=== PATIENT | male | born 1980 | race Caucasian/White ===

== ENCOUNTER 2020-11-08 08:52 | Emergency (ER) | payer BC, OTHER ==
[~2020-11-08] VITALS: Ht 187 cm; Wt 77.0 kg
[2020-11-08] MEDS ORDERED: DEXAMETHASONE (09:17)
[2020-11-08] MEDS ORDERED: DOXY100T2 (09:17)
[2020-11-08] MEDS ORDERED: ALBUTEROL (09:17)
[2020-11-08] MEDS ORDERED: LACTATED RINGERS 1,000 ML IV STA (09:24)
--- NOTE | 2020-11-08 09:29 | ED General ---
General Chief Complaint: Cough/Cold/Flu Symptoms Stated Complaint: FAIRCHILD,CP,COUGH Nursing Triage Note: STATES HE HAS BEEN SICK X1.5 WEEKS AND WAS SEEN AT THE CLINIC LAST WEEK. COVID, FLU, AND PNEUMONIA NEG. CONTINUES TO COMPLAIN OF HEADACHE, MALAISE, CHEST PRESSURE. Nursing Sepsis Screen: No Definite Risk Source of Information: Patient Exam Limitations: No Limitations History of Present Illness Date Seen by Provider: Nov 08, 2020 Time Seen by Provider: 09:10 Initial Comments Patient presents ER by private conveyance with 1 week general malaise, substernal chest pain worse on deep inspiration or palpation and discomfort that is worsened by exertion. No history of heart disease. No known medical history. He does not follow with a primary care doctor and does not take any medicines routinely. He went to urgent care for the past week and has been tested negative for Covid, influenza and walking pneumonia. He has had walking pneumonia before. He has a cough but no fever. He has had negative chest x- rays. They put him on doxycycline and Decadron which she has been taking for the past several days with no relief of symptoms. He does have some difficulty with swallowing and feels like he has an esophageal stricture. He has a son who has the same problem and had to have it dilated. He has never had EGD. Occasionally when something gets stuck in his throat he will feel nauseated but he is not feeling nauseated now. He has been on a liquid diet for the past couple days to avoid the pain of swallowing. Allergies and Home Medications Allergies Coded Allergies: No Known Drug Allergies (Unverified , 11/08/20) Home Medications Pantoprazole Sodium 40 Mg Tablet.dr, 40 MG PO DAILY Prescribed by: CUAUHTEMOC PIERCE on 11/08/20 112 Sucralfate 1 Gm Tablet, 1 GM PO QIDACHS Prescribed by: CUAUHTEMOC PIERCE on 11/08/20 1128 Patient Home Medication List Home Medication List Reviewed: Yes Review of Systems Review of Systems Constitutional: No chills, No diaphoresis, No fever; malaise EENTM: No ear discharge, No ear pain Respiratory: cough; No phlegm; short of breath; No wheezing Cardiovascular: see HPI, chest pain; No edema, No Hx of Intervention, No palpitations, No syncope, No vascular heart diseas Gastrointestinal: see HPI; No abdominal pain, No constipation, No diarrhea, No loss of appetite; other (Dysphagia) Genitourinary: No discharge, No dysuria Musculoskeletal: No back pain, No joint pain All Other Systems Reviewed Negative Unless Noted: Yes Past Dqequtu-Mqukmw-Wssxvz Hx Patient Social History Alcohol Use: Rarely Uses Smoking Status: Never a Smoker Recent Infectious Disease Expo: No Recent Hopitalizations: No Past Medical History Surgeries: Yes Orthopedic Respiratory: No Cardiac: No Neurological: No Genitourinary: No Gastrointestinal: No Musculoskeletal: No Endocrine: No HEENT: No Cancer: No Psychosocial: No Integumentary: No Physical Exam Vital Signs Vital Signs - First Documented 11/08/20 09:00 Temp 37.0 Pulse 82 Resp 16 B/P (MAP) 144/100 (115) Pulse Ox 97 O2 Delivery Room Air Capillary Refill : Less Than 3 Seconds Height, Weight, BMI Height: '" Weight: lbs. oz. kg; 22.00 BMI Method: General Appearance: Anxious, Mild Distress Eyes: Bilateral Eye Normal Inspection, Bilateral Eye PERRL, Bilateral Eye EOMI HEENT: PERRL/EOMI, Pharynx Normal, Moist Mucous Membranes Neck: Full Range of Motion, Normal Inspection Respiratory: No Chest Non Tender (Chest pain reproducible to direct palpation of the sternum); Lungs Clear, Normal Breath Sounds, No Accessory Muscle Use, No Respiratory Distress Cardiovascular: Regular Rate, Rhythm, Normal Peripheral Pulses Gastrointestinal: Normal Bowel Sounds, No Organomegaly, Non Tender, Soft Extremity: Normal Capillary Refill, Normal Inspection, No Pedal Edema Neurologic/Psychiatric: Alert, Oriented x3 Skin: Normal Color, Warm/Dry Progress/Results/Core Measures Suspected Sepsis Recent Fever Within 48 Hours: No Infection Criteria Present: Suspected New Infection New/Unexplained Altered Menta: No Sepsis Screen: No Definite Risk SIRS Temperature: Pulse: 82 Respiratory Rate: 16 Laboratory Tests 11/08/20 09:07: White Blood Count 19.7H Blood Pressure 144 /100 Mean: 115 Laboratory Tests 11/08/20 09:07: Creatinine 0.82, INR Comment 0.9, Platelet Count 235, Total Bilirubin 0.3 Results/Orders Lab Results Laboratory Tests Test 11/08/20 09:07 Range/Units White Blood Count 19.7 H 4.3-11.0 10^3/uL Red Blood Count 5.16 4.30-5.52 10^6/uL Hemoglobin 16.2 13.3-17.7 g/dL Hematocrit 47 40-54 % Mean Corpuscular Volume 91 80-99 fL Mean Corpuscular Hemoglobin 31 25-34 pg Mean Corpuscular Hemoglobin Concent 34 32-36 g/dL Red Cell Distribution Width 12.6 10.0-14.5 % Platelet Count 235 130-400 10^3/uL Mean Platelet Volume 9.6 9.0-12.2 fL Immature Granulocyte % (Auto) 2 % Neutrophils (%) (Auto) 76 H 42-75 % Lymphocytes (%) (Auto) 14 12-44 % Monocytes (%) (Auto) 7 0-12 % Eosinophils (%) (Auto) 0 0-10 % Basophils (%) (Auto) 0 0-10 % Neutrophils # (Auto) 15.0 H 1.8-7.8 10^3/uL Lymphocytes # (Auto) 2.8 1.0-4.0 10^3/uL Monocytes # (Auto) 1.5 H 0.0-1.0 10^3/uL Eosinophils # (Auto) 0.0 0.0-0.3 10^3/uL Basophils # (Auto) 0.1 0.0-0.1 10^3/uL Immature Granulocyte # (Auto) 0.4 H 0.0-0.1 10^3/uL Neutrophils % (Manual) 78 % Lymphocytes % (Manual) 10 % Monocytes % (Manual) 1 % Eosinophils % (Manual) 1 % Basophils % (Manual) 0 % Band Neutrophils 0 % Reactive Lymphocytes 10 % Blood Morphology Comment NORMAL Prothrombin Time 12.4 12.2-14.7 SEC INR Comment 0.9 0.8-1.4 Activated Partial Thromboplast Time 23 L 24-35 SEC D-Dimer 0.46 0.00-0.49 UG/ML Sodium Level 139 135-145 MMOL/L Potassium Level 4.3 3.6-5.0 MMOL/L Chloride Level 102 98-107 MMOL/L Carbon Dioxide Level 24 21-32 MMOL/L Anion Gap 13 5-14 MMOL/L Blood Urea Nitrogen 17 7-18 MG/DL Creatinine 0.82 0.60-1.30 MG/DL Estimat Glomerular Filtration Rate > 60 BUN/Creatinine Ratio 21 Glucose Level 85 70-105 MG/DL Calcium Level 9.4 8.5-10.1 MG/DL Corrected Calcium 9.2 8.5-10.1 MG/DL Magnesium Level 2.4 1.6-2.4 MG/DL Total Bilirubin 0.3 0.1-1.0 MG/DL Aspartate Amino Transf (AST/SGOT) 110 H 5-34 U/L Alanine Aminotransferase (ALT/SGPT) 380 H 0-55 U/L Alkaline Phosphatase 90 40-136 U/L Myoglobin 33.1 10.0-92.0 NG/ML Troponin I < 0.028 <0.028 NG/ML B-Type Natriuretic Peptide 12.5 <100.0 PG/ML Total Protein 6.6 6.4-8.2 GM/DL Albumin 4.2 3.2-4.5 GM/DL Coronavirus 2019 ([place]) Negative Negative Micro Results Microbiology 11/08/20 Influenza Types A,B Antigen ([facility]) - Final, Complete My Orders Orders - CUAUHTEMOC PIERCE Continuous Ekg Monitoring (11/08/20 08:54) Ekg Tracing (11/08/20 08:54) Cbc With Automated Diff (11/08/20 09:24) Magnesium (11/08/20 09:24) Chest 1 View, Ap/Pa Only (11/08/20 09:24) Comprehensive Metabolic Panel (11/08/20 09:24) Myoglobin Serum (11/08/20 09:24) Protime With Inr (11/08/20 09:24) Partial Thromboplastin Time (11/08/20 09:24) O2 (11/08/20 09:24) Ed Iv/Invasive Line Start (11/08/20 09:24) BNP (11/08/20 09:24) Fibrin Degradation Products (11/08/20 09:24) Troponin I (11/08/20 09:24) Nitroglycerin 0.4 Mg Btl 25's (Nitrostat (11/08/20 09:30) Aspirin Chewable Tablet (Baby Aspirin Ch (11/08/20 09:30) Blood Culture (11/08/20 09:24) Covid 19 Inhouse Test (11/08/20 09:24) Influenza A And B Antigens (11/08/20 09:24) Lactated Ringers (Lr 1000 Ml Iv Solution (11/08/20 09:24) Manual Differential (11/08/20 09:07) Medications Given in ED Current Medications Medications Dose Ordered Sig/Jaylene Route Start Time Stop Time Status Last Admin Dose Admin Aspirin 324 mg ONCE ONCE PO 11/08/20 09:30 11/08/20 09:31 DC 11/08/20 09:31 324 MG Nitroglycerin 0.4 mg UD PRN SL 11/08/20 09:30 11/08/20 11:47 DC 11/08/20 09:32 0.4 MG Vital Signs/I&O 11/08/20 11/08/20 09:00 11:47 Temp 37.0 Pulse 82 64 Resp 16 16 B/P (MAP) 144/100 (115) 124/90 Pulse Ox 97 98 O2 Delivery Room Air Room Air Capillary Refill : Less Than 3 Seconds Blood Pressure Mean: 115 Progress Note : Time: 11:05 Progress Note This chest pain is reproducible by swallowing and direct palpation although milder. It is very likely he could have an esophageal stricture as part of his problems. His labs are unremarkable. The elevated white count is likely due to him just recently starting Decadron a couple days ago. He is on doxycycline which should treat him well for atypical pneumonias. Chest x-ray is otherwise unremarkable. Costochondritis is also a possibility. He has not had septic labs since he arrived and has had a good oxygen saturation 96 to 100% on room air even while sleeping. Plan to give him a referral to Dr. Echols to discuss EGD. Patient's pain was significantly improved with nitroglycerin. Strongly suspect he has a esophageal stricture. His pain has been going on for several days so a negative troponin is helpful. PE has been ruled out by his D-dimer. Recommend to put him on Carafate and pantoprazole. He can have him follow-up with Dr. Echols outpatient for EGD. Were going to also encourage him strongly to follow-up with a primary care doctor and have his white count repeated in the next 2 weeks after stopping the steroids. Other possibilities are esophagitis gastritis H. pylori, ulcer/PUD, costochondritis, etc. For now I suspect the leukocytosis is related to the steroid however it should be repeated outpatient. ECG Initial ECG Impression Date: Nov 08, 2020 Initial ECG Impression Time: 09:14 Initial ECG Rate: 82 Initial ECG Rhythm: Normal Sinus Initial ECG Intervals: Normal Initial ECG Impression: Normal Initial ECG Comparisson: No Previous ECG Available Comment Normal sinus rhythm without clinically relevant ST elevation or depression. Diagnostic Imaging Diagonstic Imaging: Xray Plain Films/CT/US/NM/MRI: chest Comments NAME: FEDE ARRIETA I [facility] REC#: [id number] PT STATUS: REG ER : 1980 PHYSICIAN: CUAUHTEMOC PIERCE MD ADMIT DATE: 11/08/20/ER Signed Date of Exam:11/08/20 CHEST 1 VIEW, AP/PA ONLY HISTORY: Chest pain COMPARISON: 03/23/2009 TECHNIQUE: Frontal view the chest FINDINGS: Lung volumes are large. No focal consolidation is seen. There is no pleural effusion or pneumothorax. The cardiac silhouette is normal in size. IMPRESSION: 1. Large lung volumes with no acute pulmonary abnormality seen. Dictated by: Dictated on workstation # [id number] Dict: 11/08/20 1001 Trans: 11/08/20 1051 [facility] [id number] Interpreted by: MADDY BAIRES MD Electronically signed by: MADDY BAIRES MD 11/08/20 1051 Reviewed: Reviewed by Me Departure Impression Primary Impression: Esophagitis Additional Impressions: Chest pain Qualified Codes: R07.1 - Chest pain on breathing Steroid leukocytosis Upper respiratory tract infection Qualified Codes: J06.9 - Acute upper respiratory infection, unspecified Disposition: 01 HOME, SELF-CARE Condition: Stable Departure-Patient Inst. Decision time for Depature: 11:23 Referrals: CONY ECHOLS BASHAR J MD NO,LOCAL PHYSICIAN (PCP) Primary Care Physician Patient Instructions: Dysphagia, Esophageal Dilation, Esophageal Stricture, LOCAL PHYSICIAN LIST, Chest Pain (DC) Add. Discharge Instructions: Call and plan follow-up with Dr. Echols to discuss EGD for possible dilatation. Tylenol 1000 milligrams every 8 hours as necessary for pain. Tums Rolaids, Mylanta, Maalox etc. may be helpful. Pantoprazole 40 mg daily for the next 4 weeks. Carafate 30 minutes prior to meals and at bedtime for the next 2 weeks. Return to the ER for worsening or new symptoms. Establish care with a primary care provider and repeat a CBC in a couple weeks. Consider testing for H. pylori. I also encourage follow-up with a printing plate setter/heart doctor, Dr. Meyer. Call and request a follow-up appointment next week or the following. He can help do appropriate work-up so you understand if there are any further concerns with your heart. Stop taking the steroid today. Finish out the doxycycline as prescribed. All discharge instructions reviewed with patient and/or family. Voiced understanding. Scripts Pantoprazole Sodium (Pantoprazole Sodium) 40 Mg Tablet.dr 40 MG PO DAILY for 30 Days, #30 TAB 0 Refills Prov: CUAUHTEMOC PIERCE 11/08/20 Sucralfate (Carafate) 1 Gm Tablet 1 GM PO QIDACHS for 14 Days, #56 TAB 0 Refills Prov: CUAUHTEMOC PIERCE 11/08/20 Work/School Note: Work Release Form Date Seen in the Emergency Department: Nov 08, 2020 Return to Work: Nov 10, 2020 Restrictions: No Restrictions Copy Copies To 1: CNOY ECHOLS DO; JENNIFER MEYER MD, TITUS J Nov 08, 2020 09:29
[2020-11-08] MEDS ORDERED: NITROGLYCERIN 0.4 MG SL TABS BTL 25'S SL PRN (09:30)
[2020-11-08] MEDS ORDERED: ASPIRIN 81 MG CHEW (CHILDREN'S ASA) PO ONE (09:30)
[2020-11-08 09:39] LABS: BASOPHILS # (AUTO) 0.1 10^3/uL (0.0-0.1); BASOPHILS % (AUTO) 0 % (0-10); EOSINOPHILS % (AUTO) 0 % (0-10); HEMATOCRIT 47 % (40-54); HEMOGLOBIN 16.2 g/dL (13.3-17.7); LYMPHOCYTES # (AUTO) 2.8 10^3/uL (1.0-4.0); LYMPHOCYTES % (AUTO) 14 % (12-44); MEAN CORPUSCULAR HEMOGLOBIN 31 pg (25-34); MEAN CORPUSCULAR HGB CONC 34 g/dL (32-36); MEAN CORPUSCULAR VOLUME 91 fL (80-99); MEAN PLATELET VOLUME 9.6 fL (9.0-12.2); MONOCYTES # (AUTO) 1.5 10^3/uL (0.0-1.0); MONOCYTES % (AUTO) 7 % (0-12); NEUTROPHILS % (AUTO) 76 % (42-75); PLATELET COUNT 235 10^3/uL (130-400); WHITE BLOOD COUNT 19.7 10^3/uL (4.3-11.0)
[2020-11-08 09:44] LABS: ALBUMIN 4.2 GM/DL (3.2-4.5); CHLORIDE 102 MMOL/L (98-107); INR 0.9 (0.8-1.4); POTASSIUM 4.3 MMOL/L (3.6-5.0); PROTHROMBIN TIME PATIENT 12.4 SEC (12.2-14.7); SODIUM 139 MMOL/L (135-145)
[2020-11-08 09:45] LABS: CALCIUM 9.4 MG/DL (8.5-10.1)
[2020-11-08 09:46] LABS: GLUCOSE 85 MG/DL (70-105); TOTAL PROTEIN 6.6 GM/DL (6.4-8.2)
[2020-11-08 09:47] LABS: CARBON DIOXIDE 24 MMOL/L (21-32)
[2020-11-08 09:48] LABS: BILIRUBIN,TOTAL 0.3 MG/DL (0.1-1.0)
--- NOTE | 2020-11-08 09:48 | NUR ---
BP 100/79 ET 2ND NITRO HELD. PAIN 10/21
[2020-11-08 09:50] LABS: ALKALINE PHOSPHATASE 90 U/L (40-136); CREATININE SERUM 0.82 MG/DL (0.60-1.30); GFR ESTIMATED > 60
[2020-11-08 09:51] LABS: BUN/CREATININE RATIO 21
[2020-11-08 09:53] LABS: ALANINE AMINOTRANSFERASE 380 U/L (0-55); MAGNESIUM 2.4 MG/DL (1.6-2.4)
[2020-11-08 09:58] LABS: BAND NEUTROPHILS 0 %; BASOPHILS % (MANUAL) 0 %; EOSINOPHILS % (MANUAL) 1 %; LYMPHOCYTES % (MANUAL) 10 %; MONOCYTES % (MANUAL) 1 %; NEUTROPHILS % (MANUAL) 78 %; RBC MORPH NORMAL; REACTIVE LYMPHOCYTES 10 %
--- NOTE | 2020-11-08 10:03 | Diagnostic Imaging Report ---
HISTORY: Chest pain COMPARISON: 03/23/2009 TECHNIQUE: Frontal view the chest FINDINGS: Lung volumes are large. No focal consolidation is seen. There is no pleural effusion or pneumothorax. The cardiac silhouette is normal in size. IMPRESSION: 1. Large lung volumes with no acute pulmonary abnormality seen. Dictated by: Dictated on workstation # [id number]
[2020-11-08] MEDS ORDERED: PANT40TA52 PO (11:28)
[2020-11-08] MEDS ORDERED: SUCR1TAB36 PO (11:28)
[2020-11-08 11:47] VITALS: BP 124/90
== END 2020-11-08 11:47 | disposition home or self-care (01) ==
LOC: EDUNIT# 08:52 → ER 08:55
DX: K20.90 Esophagitis, unspecified without bleeding (principal); R07.9 Chest pain, unspecified; D72.829 Elevated white blood cell count, unspecified; J06.9 Acute upper respiratory infection, unspecified; F41.9 Anxiety disorder, unspecified; Z20.822 Contact with and (suspected) exposure to COVID-19
CPT/HCPCS: 71045; 80053; 83735; 83874; 83880; 84484; 85007; 85027; 85379; 85610; 85730; 87040; 87804; 93005; 99284; U0002; 36415; 87635

== ENCOUNTER 2020-11-29 05:31 | Outpatient (RCR) | payer OTHER ==
[~2020-11-29] VITALS: Ht 188 cm; Wt 79.5 kg
[~2020-11-29 05:31] MED LIST: ALBUTEROL; DEXAMETHASONE; DOXY100T2; PANT40TA52 PO; SUCR1TAB36 PO
== END 2020-11-29 14:29 | disposition home or self-care (01) ==
LOC: PREOP 05:31
PROVIDERS: ATTEND Surgery
DX: Z01.812 Encounter for preprocedural laboratory examination (principal); R13.10 Dysphagia, unspecified; Z20.822 Contact with and (suspected) exposure to COVID-19
CPT/HCPCS: 87635

== ENCOUNTER 2020-12-17 11:43 | Day surgery (SDC) | payer OTHER ==
[~2020-12-17] VITALS: Ht 188 cm; Wt 79.5 kg
[2020-12-17 11:50] VITALS: BP 132/95
[2020-12-17] MEDS ORDERED: LACTATED RINGERS 1,000 ML IV ONE (11:51)
[2020-12-17] MEDS ORDERED: LACTATED RINGERS 1,000 ML IV STA (12:02)
[2020-12-17] MEDS ORDERED: HURRICAINE EXT TUBE (BENZOCAINE) XX PRN (12:15)
[2020-12-17] MEDS ORDERED: proPOfol 200 MG/20 ML (DIPRIVAN) VIAL IV ONE ×2 (12:39→13:10)
[2020-12-17] MEDS ORDERED: MIDAZOLAM 2 MG/2 ML (VERSED) VIAL ONE (12:40)
[2020-12-17] MEDS ORDERED: HURRICAINE EXT TUBE (BENZOCAINE) ONE (13:09)
[2020-12-17 13:25] VITALS: BP 150/94
[2020-12-17 13:30] VITALS: BP 150/87
--- NOTE | 2020-12-17 13:31 | Anesthesia-General Post-Op ---
MAC Patient Condition Mental Status/LOC: Same as Preop Cardiovascular: Satisfactory Nausea/Vomiting: Absent Respiratory: Satisfactory Pain: Controlled Complications: Absent Post Op Complications Complications None Follow Up Care/Instructions Patient Instructions None needed. Anesthesiology Discharge Order Discharge Order Patient is doing well, no complaints, stable vital signs, no apparent adverse anesthesia problems. No complications reported per nursing. JOSEPHINE SAM CRNA Dec 17, 2020 13:31
--- NOTE | 2020-12-17 13:34 | Progress Note-Post Operative ---
Post-Operative Progess Note Surgeon (s)/Cotton Stomper (s) Surgeon CONY ECHOLS DO Cotton Stomper: none Pre-Operative Diagnosis Dysphagia, Gastritis Post-Operative Diagnosis Gastritis Sliding hiatal hernia Procedure & Operative Findings Date of Procedure 12/17/20 Procedure Performed/Findings EGD with bx Anesthesia Type IV sedation by PEDIATRIC CRITICAL CARE NURSE Estimated Blood Loss Estimated blood loss (mL): scant Specimens/Packing Specimens Removed antral bx GE jxn bx x 2 CONY ECHOLS DO Dec 17, 2020 13:34
--- NOTE | 2020-12-17 13:35 | Endoscopy Discharge Instruct ---
Endo Procedure/Findings Findings 1.: Gastritis 2.: Hiatal Hernia Discharge Instructions - Activity: You might feel a little sleepy until tomorrow. This is due to the medicine you received to relax you. Until tomorrow, you should: NOT drive a car, operate machinery or power tools. NOT drink any alcoholic beverages. NOT make any important decisions or sign importortant papers. Do not return to work until tomorrow, unless otherwise instructed. Resume previous activities tomorrow. Diet: Start by taking liquids. If you tolerate liquids, advance to solid food. 1.: EGD in 1 year Notify Physician - If you experience excessive bleeding, unusual abdominal pain, fever, or chest pain, contact your doctor immediately. CONY ECHOLS DO Dec 17, 2020 13:35
[2020-12-17 13:45] VITALS: BP 127/96
[2020-12-17 14:00] VITALS: BP 127/96
--- NOTE | 2020-12-18 02:37 | OPERATIVE REPORT ---
DATE OF SERVICE: PREOPERATIVE DIAGNOSES: Gastritis, dysphagia. POSTOPERATIVE DIAGNOSES: Gastritis, sliding hiatal hernia. PROCEDURE: EGD with biopsy. SURGEON: Da Dawn DO SPICE GRINDER: None. ANESTHESIA: IV sedation by the SOLVENT MIXER. SPECIMEN: Biopsy from the antrum, biopsy of the GE junction x2. BLOOD LOSS: Scant. FLUIDS: Per anesthesia. POSTOPERATIVE CONDITION: Stable. INDICATION FOR PROCEDURE: The patient is a 40-year-old male, who has been complaining of gastritis and dysphagia, needed a workup. FINDINGS: The patient had some mild gastritis and had what looked like a sliding hiatal hernia. PROCEDURE NOTE: After informed consent was obtained, the patient was brought to the endoscopy suite, placed in bed in left lateral decubitus position. He was administered IV sedation by the SOLVENT MIXER who then monitored by his vitals the entire time, heart rate, blood pressure and pulse ox and the scope was inserted down the mouth through the esophagus into the stomach. Upon entering the stomach, noted some gastritis, pushed pass this, passed the antrum and duodenum. Duodenum looked fine, first and second portions at least pulled back, did a biopsy of the antrum. Retroflexed the scope, saw a small hiatal hernia, looked like it was a sliding hiatal hernia. Pulled the scope back up into the GE junction and did a biopsy of the GE junction and then suctioned all the air out of the stomach, pulled the scope up the esophagus and out the mouth. There are no strictures or any cause of dysphagia in the esophagus. Pictures were taken and then the scope was removed. The patient tolerated the procedure, recovered in endoscopy suite. Job ID: [id number] DocumentID: [id number] Dictated Date: 12/17/2020 19:03:03 Employment Law Specialist Date: 12/18/2020 02:35:29 Dictated By: DA DAWN DO
== END 2020-12-17 14:10 | disposition home or self-care (01) ==
LOC: ENDO 11:43
PROVIDERS: ATTEND Surgery
DX: K29.50 Unspecified chronic gastritis without bleeding (principal); K21.00 Gastro-esophageal reflux disease with esophagitis, without bleeding; F41.9 Anxiety disorder, unspecified; F32.9 Major depressive disorder, single episode, unspecified; Z79.899 Other long term (current) drug therapy; Z87.891 Personal history of nicotine dependence